=== PATIENT | female | born 1940 | race Caucasian/White ===

== ENCOUNTER 2016-07-30 09:33 | Emergency (ER) | payer MEDICARE, OTHER ==
[~2016-07-30 09:33] MED LIST: ASAB PO; CALTRAT600; CIP5 PO; COZ25 PO; CRESTOR20 MG PO; FISH OIL PO; FLAG500TAB PO; GLUCOTROL5 PO; HALF81 PO; HYZAAR 100/25 T1 TAB PO; K500 PO; KLOR-CON M2020 MEQ PO; L40 PO; LEVOTHYROXIN75 MCG PO; LEVOTHYROXIN88 MCG PO; LIPITOR10 PO; LIPITOR40 PO; LOFIB160 PO; LOP25 PO; NEUR300 PO; P1 PO; P10 PO; PROAIR HFA INH; PROTONIX PO; PROVHFA INH; SYN112 PO; T PO; TOPXL25 PO; ULTRAM50 PO; VICODINTAB PO; VITAMIN B-122500 MCG SL
[2016-07-30 10:52] LABS: BASOPHILS 0.2 %; BASOPHILS ABSOLUTE 0.03 10/3/uL (0.0-0.16); EOSINOPHILS 0.3 %; EOSINOPHILS ABSOLUTE 0.05 10/3/uL (0.0-0.53); IMMATURE GRANULOCYTES 0.8 %; IMMATURE GRANULOCYTES ABSOLUTE 0.11 10/3/uL (0.0-0.11); LYMPHOCYTES 16.8 %; LYMPHOCYTES ABSOLUTE 2.44 10/3/uL (0.67-4.30); MEAN CORPUS HGB CONC 32.2 g/dL (32.0-36.0); MEAN CORPUSCULAR HEMOGLOB 29.6 pg (26.0-34.0); MEAN PLATELET VOLUME 8.8 fL (9.2-13.0); MONOCYTES 7.3 %; MONOCYTES ABSOLUTE 1.06 10/3/uL (0.21-1.20); NEUTROPHILS 74.6 %; RBC DISTRIBUTION WIDTH 15.2 % (12.0-16.0)
[2016-07-30 10:57] LABS: ER CBC TAT 0 Hrs 08 Mins; RED CELL COUNT 3.58 10/6/uL (4.0-5.6); WHITE BLOOD CELLS 14.5 10/3/uL (4.5-10.5)
[2016-07-30 10:58] LABS: HEMATOCRIT 32.9 % (36.0-48.0); HEMOGLOBIN 10.6 g/dL (12.0-16.0); MANUAL DIFF NO %; MEAN CORPUSCULAR VOLUME 91.9 fL (80-100); PLATELET COUNT 481 10/3/uL (150-400)
[2016-07-30 11:04] LABS: ALBUMIN 2.2 G/DL (3.5-5.0); BUN (BLOOD UREA NITROGEN) 8 MG/DL (6-23); CHLORIDE, SERUM 101 MMOL/L (96-112); CO2 (CARBON DIOXIDE) 28 MMOL/L (24-34); CREATININE 0.56 MG/DL (0.55-1.02); GFR AFRICAN AMERICAN 106 ML/MIN (>=60); GFR NON AFRICAN AMERICAN 91 ML/MIN (>=60); POTASSIUM, SERUM 3.9 MMOL/L (3.5-5.3); SGOT(AST) 20 U/L (5-40); SGPT(ALT) 18 U/L (5-65); SODIUM, SERUM 139 MMOL/L (135-148); TOTAL BILIRUBIN 0.3 MG/DL (0-1.2)
[2016-07-30 11:08] LABS: A/G RATIO 0.6 (0.7-1.9); ALKALINE PHOSPHATASE 261 U/L (45-117); GLOBULIN 3.8 G/DL (2.5-4.1); GLUCOSE, SERUM 107 MG/DL (60-99)
[2016-08-06] MEDS ORDERED: ATROVENTUD INH (14:48)
[2016-08-06] MEDS ORDERED: KDUR20 PO (15:19)
[2016-08-06] MEDS ORDERED: NEUR100 PO (15:20)
[2016-08-06] MEDS ORDERED: LIPITOR40 PO (15:21)
[2016-08-06] MEDS ORDERED: P1 PO (15:22)
[2016-08-06] MEDS ORDERED: LEVOTHYROXIN125 MCG PO (15:23)
[2016-08-06] MEDS ORDERED: DOK100 MG PO (15:24)
[2016-08-06] MEDS ORDERED: HUMALOG SC (15:24)
[2016-08-06] MEDS ORDERED: CYANO1000T PO (15:26)
[2016-08-06] MEDS ORDERED: BISR PR (15:27)
[2016-08-06] MEDS ORDERED: MIRALAX POWDER1 PKT PO (15:28)
[2016-08-06] MEDS ORDERED: ZOFRAN4 PO (15:28)
[2016-08-06] MEDS ORDERED: ENDOCET1 TA1 PO (15:29)
[2016-08-06] MEDS ORDERED: MULTIPLE VIT PO (15:29)
[2016-08-06] MEDS ORDERED: MAGOX4 PO (15:30)
[2016-08-06] MEDS ORDERED: L20 PO (15:30)
[2016-08-06] MEDS ORDERED: SEPTRA DS1 TAB PO (15:31)
[2016-09-30] MEDS ORDERED: BAC PO (15:44)
[2016-10-14] MEDS ORDERED: ASAB PO (10:39)
[2016-10-14] MEDS ORDERED: LEVOTHYROXIN125 MCG PO (10:39)
[2016-10-14] MEDS ORDERED: CRESTOR20 MG PO (10:39)
[2016-10-14] MEDS ORDERED: COREG12 PO (10:39)
[2016-10-14] MEDS ORDERED: L20 PO (10:39)
[2016-10-14] MEDS ORDERED: MEG40 PO (10:40)
[2016-10-14] MEDS ORDERED: KLOR-CON M2020 MEQ PO (10:40)
[2016-10-14] MEDS ORDERED: P1 PO (10:40)
[2016-10-14] MEDS ORDERED: PROVHFA INH (10:41)
[2016-10-14] MEDS ORDERED: ALIGN4 MG PO (10:41)
== END 2016-07-30 12:19 | disposition home or self-care (01) ==
LOC: ER 09:33
PROVIDERS: Emergency Medicine
DX: T81.4XXA Infection following a procedure, initial encounter (principal); L02.211 Cutaneous abscess of abdominal wall; Z79.899 Other long term (current) drug therapy; Z79.82 Long term (current) use of aspirin; Z79.84 Long term (current) use of oral hypoglycemic drugs
CPT/HCPCS: 80053; 83690; 85025; 87070; 87077; 87186; 87205; 99284; A9270-GY

== ENCOUNTER 2016-08-25 19:22 | Inpatient (IN) | payer MEDICARE, OTHER ==
--- NOTE | ~2016-08-25 | EGD ---
EGD REPORT [facility] [address] [place] [address] NAME: KRIS PETTY : [birth year] STATUS : ADM IN PAT#: [id number] AGE: 76 ADM/REG DATE : 08/25/16 MR#: [id number] REPORT SERV DATE: 09/08/16 DICTATED BY: BRYCE LOPEZ DATE: 09/08/16 REPORT STATUS : Draft TRANSCRIBED BY: [facility] DATE: 09/08/16 Endoscopy Center Patient Name: Kris Petty Date of : 1940 Attending MD: BRYCE LOPEZ MD Procedure Date No Time: 09/08/2016 Procedure: ERCP Indications: Suspected leak of the biliary or pancreatic ducts Referring MD: ELENA CORNEJO MD Medicines: General Anesthesia, Indomethacin 100 mg rectal Complications: No immediate complications. Estimated blood loss: None Procedure: Pre-Anesthesia Assessment: - ASA Grade Assessment: III - A patient with severe systemic disease. After obtaining informed consent, the scope was passed under direct vision. Throughout the procedure, the patient's blood pressure, pulse, and oxygen saturations were monitored continuously. The Duodenoscope was introduced through the mouth, and advanced to the duodenum and used to inject contrast into the bile duct and ventral pancreatic duct. The ERCP was accomplished without difficulty. The patient tolerated the procedure well. Findings: The sheep herder film was normal. The esophagus was successfully intubated under direct vision without detailed examination of the pharynx, larynx, and associated structures, and upper GI tract. The major papilla was congested and angled in a way that made engaging the catheter difficult, but the scope was manipulated to allow eventual cannulation. After engaging the papilla, a 0.035 inch x 260 cm straight Dreamwire was passed into the biliary tree. The short-nosed traction sphincterotome was passed over the guidewire and the bile duct was then deeply cannulated. Contrast was injected. I personally interpreted the bile duct images. Image quality was adequate. Opacification of the entire biliary tree was successful. There was no extravasation of contrast. Neither stones nor ductal dilatation were present in the main bile duct. Next, the papilla was engaged a second time with the first wire still in place and a second 0.035 inch x 260 cm straight Dreamwire was passed into the ventral pancreatic duct. The ventral pancreatic duct was deeply cannulated with the short-nosed traction sphincterotome. Contrast was injected. The entire pancreatic duct was not dilated. The entire pancreatic duct exam showed no extravasation of contrast, no irregularity and no stenosis. The ventral pancreatic duct was aspirated to lower the pressure in the duct and remove all of the contrast. Clear EGD REPORT [address] [address] NAME: KRIS PETTY : [birth year] STATUS : ADM IN [facility]#: [id number] AGE: 76 ADM/REG DATE : 08/25/16 MR#: [id number] REPORT SERV DATE: 09/08/16 DICTATED BY: BRYCE LOPEZ DATE: 09/08/16 REPORT STATUS : Draft TRANSCRIBED BY: [employer] DATE: 09/08/16 fluid was obtained and no contrast remained in the PD. The endoscope was then withdrawn from the patient to conclude the case. Impression: - Normal endoscopic retrograde cholangiopancreatography with no biliary leaks, biliary duct extravasation, pancreatic duct leaks or pancreatic duct extravasation seen. Recommendation: - [facility] to [facility] for [facility] care. Procedure Code(s): --- Professional --- 29803, Endoscopic retrograde cholangiopancreatography (ERCP); diagnostic, including collection of specimen(s) by brushing or washing, when performed (separate procedure) Diagnosis Code(s): --- Professional --- K83.9, Disease of biliary tract, unspecified CPT copyright 2013 [employer] [place] [employer]. All rights reserved. The codes documented in this report are preliminary and upon multi purpose machine operator review may be revised to meet current compliance requirements. Bryce Lopez MD BRYCE LOPEZ MD 09/08/2016 8:55 AM This report has been signed electronically. Number of Addenda: 0 Note Initiated On: 09/08/2016 7:37 AM Scope Withdrawal Time 0 hours 0 minutes 0 seconds [id number] [id number]
--- NOTE | ~2016-08-25 | EGD ---
EGD REPORT [place] [address] [place]. [address] NAME: KRIS PETTY : [birth year] STATUS : ADM IN PAT#: [id number] AGE: 76 ADM/REG DATE : 08/25/16 MR#: [id number] REPORT SERV DATE: 08/31/16 DICTATED BY: BRYCE LOPEZ DATE: 08/31/16 REPORT STATUS : Draft [facility]IBED BY: [facility] DATE: 08/31/16 Endoscopy Center Patient Name: Kris Petty Date of : 1940 Attending MD: BRYCE LOPEZ MD Procedure Date No Time: 08/31/2016 Procedure: Upper GI endoscopy Indications: Abnormal CT of the GI tract Referring MD: DENIA KEEN MD Medicines: Monitored Anesthesia Care Complications: No immediate complications. Estimated blood loss: Minimal. Procedure: After obtaining informed consent, the endoscope was passed under direct vision. Throughout the procedure, the patient's blood pressure, pulse, and oxygen saturations were monitored continuously. The GIF [id number] was introduced through the mouth, and advanced to the proximal jejunum. The upper GI endoscopy was accomplished without difficulty. The patient tolerated the procedure well. Findings: The examined esophagus was normal. The entire examined stomach was normal. Patchy mild inflammation characterized by erosions and erythema was found in the duodenal bulb, in the first part of the duodenum and in the second part of the duodenum. The examined jejunum was normal. The cardia and gastric fundus were normal on retroflexion. Impression: - Mild duodenitis without any suggestion of a fistula. - Examination otherwsie normal Recommendation: - Return patient to [facility] for [facility] care. - Clear liquid diet. Procedure Code(s): --- Professional --- 36073, Esophagogastroduodenoscopy, flexible, transoral; diagnostic, including collection of specimen(s) by brushing or washing, when performed (separate procedure) Diagnosis Code(s): --- Professional --- K29.80, Duodenitis without bleeding R93.3, Abnormal findings on diagnostic imaging of other parts of digestive tract EGD REPORT [place] [address] [place]. [address] NAME: KRIS PETTY : [birth year] STATUS : ADM IN [facility]#: [id number] AGE: 76 ADM/REG DATE : 08/25/16 MR#: [id number] REPORT SERV DATE: 08/31/16 DICTATED BY: BRYCE LOPEZ DATE: 08/31/16 REPORT STATUS : Draft TRANSCRIBED BY: [email or web address] DATE: 08/31/16 CPT copyright 2013 [employer]. All rights reserved. The codes documented in this report are preliminary and upon mononitrotoluene operator review may be revised to meet current compliance requirements. Bryce Lopez MD BRYCE LOPEZ MD 08/31/2016 8:53 AM This report has been signed electronically. Number of Addenda: 0 Note Initiated On: 08/31/2016 8:15 AM Scope Withdrawal Time 0 hours 0 minutes [address] [place], [place] [address] [address]
--- NOTE | ~2016-08-25 | CN ---
Consultation Report [facility] [address] [place]. [address] NAME: KRIS PETTY : [birth year] STATUS : ADM IN PAT#: [id number] AGE: 76 ADM/REG DATE : 08/25/16 MR#: [id number] REPORT SERV DATE: 08/30/16 DICTATED BY: CORINA NAIDU DATE: 08/30/16 REPORT STATUS : Draft TRANSCRIBED BY: MODL DATE: 08/30/16 GI CONSULTATION DATE OF CONSULTATION: 08/30/2016 REASON FOR CONSULTATION: Evaluation and management of the patient for EGD to rule out duodenal fistula. HISTORY OF PRESENT ILLNESS: Ms Kris Petty is a very pleasant 76-year-old female patient, who is known to Dr. Ben Banegas in the outpatient setting ,who presented to [facility] on 08/25/2016, with a chief complaint of right upper quadrant retroperitoneal abscess. We saw Ms. Petty in June of 2016, while she was in the ICU. She had been admitted at that time for mid epigastric abdominal pain, progressed to septic shock, and felt possibly she has had rupture of her gallbladder, she underwent emergent surgery with Dr. Sifuentes on 06/09/2016, with postoperative diagnosis of severe acute pancreatitis, cholecystitis, bile peritonitis, sepsis, with multi-system organ failure. We had seen her at that time, for evaluation of bile leak which HIDA scan did not reveal and subsequently, we signed off her case. She was ultimately discharged from the hospital on 07/13/2016, she went to rehab, states that she was at rehab, and was doing well up until several weeks ago when she had drainage from her midline incision. She was seen by Dr. Sifuentes, who sent her for imaging on 08/06/2016. She had findings of a large 11 x 12 x 17 cm right flank retroperitoneal posterior perirenal fluid collection, potentially a biloma versus abscess with no extravasation of the GI tract contrast into the collection. She on that same day, had a drain placed to that site. She states that she went back to rehab, did well for two days, then had recurrence of drainage. She has had a HIDA scan on 08/23/2016, which showed no evidence of the bile leak. She had an abscessogram done on 08/23/2016, which demonstrated persistent large retroperitoneal collection, with a component tracking into intrahepatic region. Injection of contrast through the existing drain did demonstrate the collection to be loculated, and the drain was partially clogged with poor output from the drain. She has since that time been readmitted, she has had multiple other drains placed, she has had an upper GI with Gastrografin that did not reveal any extravasation of contrast. She is going for a repeat abscessogram today. Dr. Sifuentes has requested GI evaluation to rule out possible duodenal fistula. I have discussed with the patient, EGD, risks, benefits, alternatives, and complications were detailed for her to include, but not limited to risk of bleeding, perforation, infection, reaction to medication, as well as cardiac and pulmonary side effects. She gives permission to proceed. PAST MEDICAL HISTORY: Positive for right upper quadrant abscess associated with septic shock that required emergent surgery in June of this year. Pancreatitis, steroid dependent temporal arteritis, type 2 diabetes, coronary artery disease, history of [place], diverticulitis, as well as diverticulosis, and GERD. PAST SURGICAL HISTORY: Thyroidectomy with postoperative hypothyroidism, pacemaker placement, lip cyst excision, laparoscopic cholecystectomy, laparotomy with lavage of abdominal cavity, Consultation Report [place] [id number] [facility] [place]. [address] NAME: KRIS PETTY : [birth year] STATUS : ADM IN [facility]#: [id number] AGE: 76 ADM/REG DATE : 08/25/16 MR#: [id number] REPORT SERV DATE: 08/30/16 DICTATED BY: CORINA NAIDU DATE: 08/30/16 REPORT STATUS : Draft TRANSCRIBED BY: [employer] DATE: 08/30/16 and mobilization of duodenum. SOCIAL HISTORY: She lives independently. Just finished rehabilitation from her June hospitalization. Past tobacco cessation in 2006. No alcohol or illicits. FAMILY HISTORY: Noncontributory from a GI standpoint. ALLERGIES: NO KNOWN DRUG ALLERGIES. HOME MEDICATIONS: Tylenol, aspirin, Lipitor, vitamin B12, Lasix, levothyroxine, potassium, and prednisone. REVIEW OF SYSTEMS: A 10-point review of systems has been obtained with pertinent positives being addressed in the history of present illness. PERTINENT LABORATORY DATA: Sodium 139, potassium 4, BUN of 2, creatinine 0.42, white count 10.4, hemoglobin 9.5, hematocrit 29. On 08/23/2016, wound cultures revealed Klebsiella pneumoniae. She had elevated CA 19-9 at 39.4, total bilirubin 0.2, alkaline phosphatase 104, ALT 11, and AST 10. PHYSICAL EXAMINATION: VITAL SIGNS: Temperature is 97.8, pulse 97, respirations 14, and blood pressure of 123/63. NEURO: Reveals an alert, female, resting in bed with no focal deficits. GENERAL: Cooperative, in no apparent distress. She is awake, she is alert, and she is oriented x3. HEAD, EARS, EYES, NOSE, AND THROAT: Anicteric. Pupils equal, round, and reactive to light and accommodation. Normocephalic and atraumatic. NECK: Supple. No JVD. No palpable nodes. LUNGS: Coarse with positive cough. Normal respiratory effort exhibited. CARDIOVASCULAR: Regular rate and rhythm. ABDOMEN: Soft, nondistended, obese. Midline dressing clean, dry, and intact. She has right-sided JOSEPHINE drains with light yellow drainage. EXTREMITIES: No edema. Normal distal pulses. SKIN: Warm, dry, and intact with multiple areas of ecchymosis. ASSESSMENT/PLAN: 1. Right upper quadrant retroperitoneal abscess, questionable etiology. 2. Questionable duodenal fistula, EGD to rule out. 3. Status post hospitalization in June 2016, septic shock, right upper quadrant bile collection, pancreatitis. 4. Temporal arteritis, on chronic steroids. 5. Type 2 diabetes. PLAN: Consultation Report [address] [place]. [address] NAME: KRIS PETTY : [birth year] STATUS : ADM IN [facility]#: [id number] AGE: 76 ADM/REG DATE : 08/25/16 MR#: [id number] REPORT SERV DATE: 08/30/16 DICTATED BY: CORINA NAIDU DATE: 08/30/16 REPORT STATUS : Draft TRANSCRIBED BY: MODL DATE: 08/30/[address] abscessogram today. 2. We will plan for EGD on 08/31/[address] Aguillon. Other recommendations to follow. ELY/RICH FLAQUITA Amador / [id number] CC: Collins Curtis III, M.D.
--- NOTE | ~2016-08-25 | HP ---
History And Physical [place] [id number] [facility] [place]. [address] NAME: KRIS PETTY : [birth year] STATUS : ADM IN [facility]#: [id number] AGE: 76 ADM/REG DATE : 08/25/16 MR#: [id number] REPORT SERV DATE: 08/26/16 DICTATED BY: ARIELLA BAKER III DATE: 08/25/16 REPORT STATUS : Draft TRANSCRIBED BY: MODL DATE: 08/25/16 DATE OF ADMISSION: 08/25/2016 HISTORY OF PRESENT ILLNESS: This 76-year-old female was admitted hospital emergently with evidence for a right upper quadrant retroperitoneal abscess. Ms Petty was hospitalized emergently on 06/07/2016. She presented to the emergency room with evidence for severe pancreatitis and sepsis and septic shock. The etiology for this was unclear. The patient underwent emergent laparotomy on 06/09/2016. She was found to have evidence for severe acute pancreatitis and cholecystitis and bile peritonitis. She had a large collection of bile in the right upper quadrant. The exact source of this could not be identified. Although the patient had evidence for cholecystitis, there was no evidence for gallbladder rupture. The patient was septic at that time with multisystem organ failure. She was treated with surgical drainage of her fluid collection and cholecystectomy. She required prolonged intensive care unit stay and prolonged ventilation. The patient recovered from this and was discharged to an assisted living facility in stable condition. Since that time, the patient has had a poor appetite and some nausea. She recently presented to our office with drainage from her midline incision. CT scan of the abdomen and pelvis was obtained at that time, which showed a large retroperitoneal fluid collection consistent with an abscess or biloma. CT directed drainage was performed. The patient has improved somewhat, but remains ill. She has been seen in my office on several occasions and admission hospital to the hospital was indicated because of this complex complicated problem associated with previous sepsis and because of her frail condition. We discussed this with the patient and her daughter on several times and occasions. The patient was recovering and declined initially to be admitted to the hospital. Today, she agreed to be admitted and is admitted for further care including parental antibiotics and a repeat CT scan. Her last CT scan showed a large collection again in the retroperitoneum in the right upper quadrant. Cultures of this were obtained and were found to be positive for Klebsiella. The contrast was administered through the drain and no connection of GI tract was identified. PAST MEDICAL HISTORY: 1. History of a large right upper quadrant abscess associated with septic shock requiring emergent surgery on 06/09/2016 as above, associated pancreatitis, with the etiology for this being undetermined. 2. History of steroid dependent temporal arteritis. 3. History of diabetes mellitus. 4. History of coronary artery disease. 5. Myocardial infarction in the past. ALLERGIES: NONE. REVIEW OF SYSTEMS: The patient complains of some drainage from her incision. She complains of some nausea. She has had no fever or chills or any systemic complaint. History And Physical [address] [place]. [address] NAME: KRIS PETTY : 42 STATUS : ADM IN [facility]#: [id number] AGE: 76 ADM/REG DATE : 08/25/16 MR#: [id number] REPORT SERV DATE: 08/26/16 DICTATED BY: ARIELLA BAKER III DATE: 08/25/16 REPORT STATUS : Draft TRANSCRIBED BY: RICH DATE: 08/25/16 MEDICATIONS AT HOME: Include Tylenol, Halfprin, vitamin D, Neurontin, Glucotrol, Synthroid, Hyzaar, Protonix, potassium, Deltasone, Crestor, and Ultram. SOCIAL HISTORY: The patient is retired. She lives locally. She is recently discharged from assisted living facility. No history of tobacco or alcohol use. FAMILY HISTORY: Positive for COPD. OBJECTIVE PHYSICAL EXAM: GENERAL: This is a frail female who is in no acute distress. She is alert and oriented x3. HEENT: Unremarkable. Cranial nerves II through XII are normal. LUNGS: Clear. CARDIAC: Normal. ABDOMEN: Soft and nontender. She has some serosanguineous to cloudy drainage from the inferior aspect of her previous midline incision. The incision itself is well healed. She has some drainage from superior aspect of the incision as well. EXTREMITIES: Normal. LABORATORY DATA: CT scan of the abdomen and pelvis is as above. ASSESSMENT: A 76-year-old female with: 1. Right upper quadrant right retroperitoneal abscess, unclear etiology. 2. Status post hospitalization emergently for septic shock associated with right upper quadrant bile collection of undetermined etiology, requiring emergent laparotomy with drainage of the abscess on 06/09/2016. The patient is felt to have radiographic evidence for pancreatitis at that time. 3. Steroid dependent temporal arteritis. 4. Diabetes mellitus. 5. Coronary artery disease. 6. History of myocardial infarction in the past. PLAN: The patient will be admitted and started on parenteral fluids and antibiotics. I have requested a repeat CT scan of the abdomen and pelvis to follow up on the right upper quadrant fluid collection. I have also requested an ID consult. Further intervention and treatment will depend on her clinical course and results of these studies. This plan has been explained the patient and family. There questions have been answered. They understand and agree to this as planned. MARLENE/RICH Ariella Baker III, M.D. / [phone] History And Physical [address] [address] NAME: KRIS PETTY : 42 STATUS : ADM IN PAT#: [id number] AGE: 76 ADM/REG DATE : 08/25/16 MR#: [id number] REPORT SERV DATE: 08/26/16 DICTATED BY: ARIELLA BAKER III DATE: 08/25/16 REPORT STATUS : Draft TRANSCRIBED BY: RICH DATE: 08/25/16 CC: Collins Curtis III, M.D.
--- NOTE | ~2016-08-25 | DS ---
Discharge Summary [facility] [address] [place]. [address] NAME: KRIS MORROW : 42 STATUS : DIS IN PAT#: [id number] AGE: 76 ADM/REG DATE : 08/25/16 MR#: [id number] REPORT SERV DATE: 09/26/16 DICTATED BY: ARIELLA BAKER III DATE: 09/26/16 REPORT STATUS : Draft TRANSCRIBED BY: MODMonica DATE: 09/26/16 Data Collection from hospitalization DISCHARGE DIAGNOSES: 1. Right upper quadrant abscess. 2. Questionable fistula. 3. Diabetes mellitus. 4. History of coronary artery disease. 5. History of myocardial infarction. 6. History of steroid dependent temporal arteritis. 7. Former tobacco use. 8. Anemia. 9. Mild chronic obstructive pulmonary disease. 10.Gastroesophageal reflux disease. 11.History of septic shock. CONSULTATIONS: FLAQUITA Amador. Carlos Santiago M.D. PROCEDURES PERFORMED: 1. Upper GI endoscopy on 08/31/2016. 2. ERCP 09/08/2016. 3. CT scan of the abdomen and pelvis without contrast, 08/26/2016. 4. CT-guided percutaneous placement of two right-sided abdominal abscess drain 08/27/2016. 5. Abscessogram 08/30/2016. 6. Abscessogram 09/03/2016. 7. CT scan of the abdomen and pelvis without contrast, 09/06/2016. 8. Abscessogram 09/09/2016. MEDICATIONS: Tylenol 650 mg at bedtime as needed, Halfprin 81 mg daily, vitamin B12 5000 mcg daily, Lasix 20 to 40 mg daily as needed, levothyroxine 125 mcg daily, K-Dur 20 mEq daily, Deltasone 2 mg daily, Crestor 20 mg at bedtime. CONDITION AT DISCHARGE: Stable. DISPOSITION: The patient was discharged home to be followed by home health care on an 1800- calorie diabetic diet with activities as instructed. She will follow up with me the week following discharge. HOSPITAL COURSE: This is a 76-year-old female who presented with evidence for a right upper quadrant retroperitoneal abscess. The patient had been hospitalized emergently on 06/07/2016. She presented to the emergency room with evidence for severe pancreatitis, sepsis, and septic shock. The etiology for this was unclear. The patient underwent emergent laparotomy on 06/09/2016. She was found to have evidence for severe acute pancreatitis and cholecystitis and bile peritonitis. She had a large collection of bile on the right upper quadrant pain. The exact source of this could not be identified. Although, the patient had evidence for cholecystitis, there was no evidence for gallbladder rupture. The patient was septic at that time with multi-system organ failure. She was treated with surgical drainage of her fluid collection and cholecystectomy. She required prolonged Discharge [address] [place]. [address] NAME: KRIS MORROW : 42 STATUS : DIS IN PAT#: [id number] AGE: 76 ADM/REG DATE : 08/25/16 MR#: [id number] REPORT SERV DATE: 09/26/16 DICTATED BY: ARIELLA BAKER III DATE: 09/26/16 REPORT STATUS : Draft TRANSCRIBED BY: RICH DATE: 09/26/16 intensive care unit stay and prolonged ventilation. The patient recovered from this and was discharged to an assisted living facility in stable condition. Since that time, she had a poor appetite and had some nausea. She recently presented to our office with drainage from her midline incision. A CT scan of the abdomen and pelvis at that time showed large retroperitoneal fluid collection consistent with an abscess or biloma. CT-directed drainage was performed. The patient had improved somewhat but remained ill. She was seen in my office on several occasions, and admission to the hospital was indicated because of this complex complicated problem associated with previous sepsis and because of her frail condition. We discussed this with the patient and her daughter on several occasions, and the patient was recovering and declined initially to be admitted to the hospital. On the day of this admission, she agreed to be admitted for parental antibiotics and repeat CT scan. Her last CT scan showed a large collection again in the retroperitoneum in the right upper quadrant. Cultures were obtained and were found to be positive for Klebsiella. The contrast was administered through the drain and no connection of GI tract was identified. She was admitted at this time for further evaluation and treatment. Upon admission, a CT scan of the abdomen and pelvis without contrast was performed. The patient was seen by Dr. Carlos Santiago who had seen the patient in May for severe sepsis. The patient has had pancreatitis, cholecystitis, right upper quadrant inflammation, and bilious fluid but no evidence of GI perforation. She had undergone laparotomy and cholecystectomy. She had recently developed drainage from the midline abdominal incision. Her CT scan showed a large right retroperitoneal fluid collection. This was decreased percutaneously on 08/06/2016, 750 mL of white fluids had been removed and cultures had revealed Klebsiella. On 08/23/2016, a HIDA scan showed no biliary leak. Zosyn had been started. She was evaluated by Physical Therapy. He was not fully convinced the patient would need antibiotics at this time. On , the patient underwent CT-guided percutaneous placement of two right-sided abdominal abscess drains. On , she said she was feeling much better after the drainage procedure. Her appetite had improved. She had no nausea, vomiting, or abdominal pain at this time. She had been found to have a large right upper quadrant/retroperitoneal abscess, the etiology was unclear. On 08/29/2016, she was alert and comfortable. She had no complaints. She continued to have intermittent ileus drainage. Zosyn was continued. On 08/30/2016, she had no new complaints. An abscessogram was performed. She had no abdominal pain, nausea, or vomiting. Repeat CT scan was requested. She was seen by Yakov De Jesus for evaluation and management of the patient for EGD to rule out duodenal fistula. The risks and benefits of EGD were discussed with the patient. She gave permission to proceed. On , she underwent an upper GI endoscopy by Dr. Bryce Aguillon. She tolerated this well. There were no complications. There was mild duodenitis without any suggestion of a fistula. The exam was otherwise normal. She was placed on a clear liquid diet. Small bowel follow-through had been performed, this showed no leak. The patient had no abdominal pain. On 09/01/2016, she had no new complaints. Antibiotics were continued. She was afebrile. Drainage cultures were negative. The next day, she had no complaints except for being hungry. Her diet was advanced. The JOSEPHINE drain site was sore. The patient underwent an abscessogram. On 09/04/2016, current care was continued. She remained afebrile. On the , she was feeling better and wanted to go home. She was eating well. She had no abdominal pain. Zosyn was discontinued. On 09/06/2016, she had no new complaints. CT scan Discharge [place] [id number] [address] [place]. [id number] NAME: KRIS MORROW : 42 STATUS : DIS IN PAT#: [id number] AGE: 76 ADM/REG DATE : 08/25/16 MR#: [id number] REPORT SERV DATE: 09/26/16 DICTATED BY: ARIELLA BAEKR III DATE: 09/26/16 REPORT STATUS : Draft TRANSCRIBED BY: MODL DATE: 09/26/16 of the abdomen and pelvis without contrast was performed. She was felt to have a bilious leak the next day. The patient denied abdominal pain. Heparin was held. There was air in the biliary tree. JOSEPHINE drain #1 was going to be removed. On 09/08/2016, ERCP was performed. She had a normal common bile duct. No evidence of bile or pancreatic leak. Next day, discharge planning was performed. Abscessogram was obtained. She remained afebrile. Abscessogram showed no biliary fistula. She was stable off antibiotics. On 09/10/2016, she felt well and wanted to go home. Discharge instructions were given. Due to her improved and stable condition, she was discharged home to be followed by home health care with the above-stated instructions. Information collected by: Giselle Valentino I submit the above information as my discharge summary. TG/RICH Ariella Baker III, M.D. / [id number] CC: Collins Curtis III, M.D. Paul Cornea, M.D. Destin Griffin-Trussell, FNP
[~2016-08-25 19:22] MED LIST changes: +ATROVENTUD INH; +BISR PR; +CYANO1000T PO; +DOK100 MG PO; +ENDOCET1 TA1 PO; +HUMALOG SC; +KDUR20 PO; +L20 PO; +LEVOTHYROXIN125 MCG PO; +MAGOX4 PO; +MIRALAX POWDER1 PKT PO; +MULTIPLE VIT PO; +NEUR100 PO; +SEPTRA DS1 TAB PO; +ZOFRAN4 PO
[2016-08-25 20:56] LABS: BASOPHILS 0.2 %; BASOPHILS ABSOLUTE 0.02 10/3/uL (0.0-0.16); EOSINOPHILS 0.4 %; EOSINOPHILS ABSOLUTE 0.05 10/3/uL (0.0-0.53); HEMATOCRIT 32.4 % (36.0-48.0); HEMOGLOBIN 10.6 g/dL (12.0-16.0); IMMATURE GRANULOCYTES 0.4 %; IMMATURE GRANULOCYTES ABSOLUTE 0.04 10/3/uL (0.0-0.11); LYMPHOCYTES 13.2 %; LYMPHOCYTES ABSOLUTE 1.49 10/3/uL (0.67-4.30); MANUAL DIFF NO %; MEAN CORPUS HGB CONC 32.7 g/dL (32.0-36.0); MEAN CORPUSCULAR HEMOGLOB 28.2 pg (26.0-34.0); MEAN CORPUSCULAR VOLUME 86.2 fL (80-100); MEAN PLATELET VOLUME 8.7 fL (9.2-13.0); MONOCYTES 8.6 %; MONOCYTES ABSOLUTE 0.98 10/3/uL (0.21-1.20); NEUTROPHILS 77.2 %; NEUTROPHILS ABSOLUTE 8.75 10/3/uL (2.02-8.40); PLATELET COUNT 457 10/3/uL (150-400); RBC DISTRIBUTION WIDTH 15.9 % (12.0-16.0); RED CELL COUNT 3.76 10/6/uL (4.0-5.6); WHITE BLOOD CELLS 11.3 10/3/uL (4.5-10.5)
[2016-08-25 21:11] LABS: A/G RATIO 0.6 (0.7-1.9); ALBUMIN 2.2 G/DL (3.5-5.0); ALKALINE PHOSPHATASE 121 U/L (45-117); BUN (BLOOD UREA NITROGEN) 5 MG/DL (6-23); CALCIUM, SERUM 9.8 MG/DL (8.5-10.4); CHLORIDE, SERUM 104 MMOL/L (96-112); CO2 (CARBON DIOXIDE) 21 MMOL/L (24-34); CREATININE 0.47 MG/DL (0.55-1.02); GFR AFRICAN AMERICAN 112 ML/MIN (>=60); GFR NON AFRICAN AMERICAN 97 ML/MIN (>=60); GLOBULIN 3.4 G/DL (2.5-4.1); GLUCOSE, SERUM 73 MG/DL (60-99); POTASSIUM, SERUM 3.7 MMOL/L (3.5-5.3); SGOT(AST) 11 U/L (5-40); SGPT(ALT) 12 U/L (5-65); SODIUM, SERUM 139 MMOL/L (135-148); TOTAL BILIRUBIN 0.3 MG/DL (0-1.2); TOTAL PROTEIN 5.6 G/DL (6.0-8.5)
[2016-08-26 07:08] LABS: BASOPHILS 0.2 %; BASOPHILS ABSOLUTE 0.02 10/3/uL (0.0-0.16); EOSINOPHILS 1.7 %; EOSINOPHILS ABSOLUTE 0.16 10/3/uL (0.0-0.53); HEMATOCRIT 30.9 % (36.0-48.0); IMMATURE GRANULOCYTES 0.9 %; IMMATURE GRANULOCYTES ABSOLUTE 0.09 10/3/uL (0.0-0.11); MEAN CORPUS HGB CONC 32.4 g/dL (32.0-36.0); MEAN CORPUSCULAR HEMOGLOB 28.6 pg (26.0-34.0); MEAN CORPUSCULAR VOLUME 88.3 fL (80-100); MEAN PLATELET VOLUME 9.8 fL (9.2-13.0); MONOCYTES 12.1 %; MONOCYTES ABSOLUTE 1.16 10/3/uL (0.21-1.20); NEUTROPHILS 61.1 %; NEUTROPHILS ABSOLUTE 5.85 10/3/uL (2.02-8.40); PLATELET COUNT 389 10/3/uL (150-400); RBC DISTRIBUTION WIDTH 16.2 % (12.0-16.0); WHITE BLOOD CELLS 9.6 10/3/uL (4.5-10.5)
[2016-08-26 07:10] LABS: MANUAL DIFF NO %
[2016-08-26 07:26] LABS: A/G RATIO 0.6 (0.7-1.9); ALBUMIN 1.9 G/DL (3.5-5.0); ALKALINE PHOSPHATASE 104 U/L (45-117); BUN (BLOOD UREA NITROGEN) 5 MG/DL (6-23); CALCIUM, SERUM 9.1 MG/DL (8.5-10.4); CHLORIDE, SERUM 109 MMOL/L (96-112); CO2 (CARBON DIOXIDE) 23 MMOL/L (24-34); GFR AFRICAN AMERICAN 110 ML/MIN (>=60); GFR NON AFRICAN AMERICAN 95 ML/MIN (>=60); GLOBULIN 3.1 G/DL (2.5-4.1); GLUCOSE, SERUM 80 MG/DL (60-99); POTASSIUM, SERUM 3.8 MMOL/L (3.5-5.3); SGOT(AST) 10 U/L (5-40); SGPT(ALT) 11 U/L (5-65); SODIUM, SERUM 141 MMOL/L (135-148); TOTAL BILIRUBIN 0.2 MG/DL (0-1.2)
[2016-08-26] MEDS ORDERED: CRESTOR20 MG PO (12:25)
[2016-08-27 05:45] LABS: BASOPHILS 0.2 %; BASOPHILS ABSOLUTE 0.02 10/3/uL (0.0-0.16); EOSINOPHILS 2.3 %; EOSINOPHILS ABSOLUTE 0.21 10/3/uL (0.0-0.53); HEMATOCRIT 30.1 % (36.0-48.0); HEMOGLOBIN 9.5 g/dL (12.0-16.0); IMMATURE GRANULOCYTES 0.4 %; IMMATURE GRANULOCYTES ABSOLUTE 0.04 10/3/uL (0.0-0.11); LYMPHOCYTES 23.3 %; LYMPHOCYTES ABSOLUTE 2.12 10/3/uL (0.67-4.30); MEAN CORPUS HGB CONC 31.6 g/dL (32.0-36.0); MEAN CORPUSCULAR HEMOGLOB 28.2 pg (26.0-34.0); MEAN CORPUSCULAR VOLUME 89.3 fL (80-100); MEAN PLATELET VOLUME 8.7 fL (9.2-13.0); MONOCYTES 11.1 %; MONOCYTES ABSOLUTE 1.01 10/3/uL (0.21-1.20); NEUTROPHILS 62.7 %; NEUTROPHILS ABSOLUTE 5.69 10/3/uL (2.02-8.40); PLATELET COUNT 399 10/3/uL (150-400); RBC DISTRIBUTION WIDTH 16.1 % (12.0-16.0); RED CELL COUNT 3.37 10/6/uL (4.0-5.6); WHITE BLOOD CELLS 9.1 10/3/uL (4.5-10.5)
[2016-08-27 05:46] LABS: MANUAL DIFF NO %
[2016-08-27 05:51] LABS: BUN (BLOOD UREA NITROGEN) 3 MG/DL (6-23); CALCIUM, SERUM 8.5 MG/DL (8.5-10.4); CHLORIDE, SERUM 110 MMOL/L (96-112); CO2 (CARBON DIOXIDE) 21 MMOL/L (24-34); GFR AFRICAN AMERICAN 110 ML/MIN (>=60); GFR NON AFRICAN AMERICAN 95 ML/MIN (>=60); GLUCOSE, SERUM 72 MG/DL (60-99); POTASSIUM, SERUM 4.4 MMOL/L (3.5-5.3); SODIUM, SERUM 141 MMOL/L (135-148)
[2016-08-27 09:33] LABS: INTERNATIONAL NORMAL RATI 1.2 UNITS (-); PARTIAL THROMBO TIME 37.1 SEC (22.5-37.2); PROTIME (NOT ORD) 15.2 SEC (12.0-14.5)
[2016-08-28 06:31] LABS: BASOPHILS 0.3 %; BASOPHILS ABSOLUTE 0.02 10/3/uL (0.0-0.16); EOSINOPHILS 3.4 %; EOSINOPHILS ABSOLUTE 0.24 10/3/uL (0.0-0.53); HEMATOCRIT 28.9 % (36.0-48.0); HEMOGLOBIN 9.1 g/dL (12.0-16.0); IMMATURE GRANULOCYTES 0.4 %; IMMATURE GRANULOCYTES ABSOLUTE 0.03 10/3/uL (0.0-0.11); LYMPHOCYTES 27.3 %; LYMPHOCYTES ABSOLUTE 1.93 10/3/uL (0.67-4.30); MEAN CORPUS HGB CONC 31.5 g/dL (32.0-36.0); MEAN CORPUSCULAR HEMOGLOB 28.2 pg (26.0-34.0); MEAN CORPUSCULAR VOLUME 89.5 fL (80-100); MEAN PLATELET VOLUME 8.7 fL (9.2-13.0); MONOCYTES 11.3 %; NEUTROPHILS 57.3 %; NEUTROPHILS ABSOLUTE 4.05 10/3/uL (2.02-8.40); PLATELET COUNT 378 10/3/uL (150-400); RED CELL COUNT 3.23 10/6/uL (4.0-5.6); WHITE BLOOD CELLS 7.1 10/3/uL (4.5-10.5)
[2016-08-28 06:33] LABS: MANUAL DIFF NO %
[2016-08-28 06:36] LABS: BUN (BLOOD UREA NITROGEN) 3 MG/DL (6-23); CALCIUM, SERUM 8.4 MG/DL (8.5-10.4); CHLORIDE, SERUM 110 MMOL/L (96-112); CO2 (CARBON DIOXIDE) 21 MMOL/L (24-34); CREATININE 0.43 MG/DL (0.55-1.02); GFR AFRICAN AMERICAN 115 ML/MIN (>=60); GFR NON AFRICAN AMERICAN 99 ML/MIN (>=60); GLUCOSE, SERUM 76 MG/DL (60-99); POTASSIUM, SERUM 3.9 MMOL/L (3.5-5.3); SODIUM, SERUM 139 MMOL/L (135-148)
[2016-08-28 17:38] LABS: AMYLASE BODY FLUID 12198 U/L
[2016-08-30 06:29] LABS: BD FL SOURCE (NOT ORD) JP DRAIN
[2016-08-30 06:55] LABS: BASOPHILS 0.2 %; BASOPHILS ABSOLUTE 0.02 10/3/uL (0.0-0.16); EOSINOPHILS 1.1 %; EOSINOPHILS ABSOLUTE 0.11 10/3/uL (0.0-0.53); HEMOGLOBIN 9.5 g/dL (12.0-16.0); IMMATURE GRANULOCYTES 0.4 %; IMMATURE GRANULOCYTES ABSOLUTE 0.04 10/3/uL (0.0-0.11); LYMPHOCYTES 16.9 %; LYMPHOCYTES ABSOLUTE 1.76 10/3/uL (0.67-4.30); MANUAL DIFF NO %; MEAN CORPUS HGB CONC 32.8 g/dL (32.0-36.0); MEAN CORPUSCULAR VOLUME 88.4 fL (80-100); MEAN PLATELET VOLUME 9.2 fL (9.2-13.0); MONOCYTES 9.9 %; MONOCYTES ABSOLUTE 1.03 10/3/uL (0.21-1.20); NEUTROPHILS 71.5 %; NEUTROPHILS ABSOLUTE 7.43 10/3/uL (2.02-8.40); PLATELET COUNT 350 10/3/uL (150-400); RBC DISTRIBUTION WIDTH 15.8 % (12.0-16.0); RED CELL COUNT 3.28 10/6/uL (4.0-5.6); WHITE BLOOD CELLS 10.4 10/3/uL (4.5-10.5)
[2016-08-30 07:11] LABS: BUN (BLOOD UREA NITROGEN) 2 MG/DL (6-23); CALCIUM, SERUM 9.3 MG/DL (8.5-10.4); CHLORIDE, SERUM 107 MMOL/L (96-112); CO2 (CARBON DIOXIDE) 23 MMOL/L (24-34); CREATININE 0.42 MG/DL (0.55-1.02); GFR AFRICAN AMERICAN 116 ML/MIN (>=60); GFR NON AFRICAN AMERICAN 100 ML/MIN (>=60); GLUCOSE, SERUM 64 MG/DL (60-99); SODIUM, SERUM 139 MMOL/L (135-148)
[2016-08-30 07:34] LABS: CA-19-9 39.4 U/ML (< 37.0)
[2016-08-31 06:42] LABS: BASOPHILS 0.4 %; BASOPHILS ABSOLUTE 0.02 10/3/uL (0.0-0.16); EOSINOPHILS 1.1 %; EOSINOPHILS ABSOLUTE 0.06 10/3/uL (0.0-0.53); HEMOGLOBIN 9.2 g/dL (12.0-16.0); IMMATURE GRANULOCYTES 0.2 %; IMMATURE GRANULOCYTES ABSOLUTE 0.01 10/3/uL (0.0-0.11); LYMPHOCYTES 30.7 %; MEAN CORPUS HGB CONC 31.7 g/dL (32.0-36.0); MEAN CORPUSCULAR HEMOGLOB 27.9 pg (26.0-34.0); MEAN CORPUSCULAR VOLUME 87.9 fL (80-100); MEAN PLATELET VOLUME 8.6 fL (9.2-13.0); MONOCYTES 13.6 %; MONOCYTES ABSOLUTE 0.71 10/3/uL (0.21-1.20); NEUTROPHILS ABSOLUTE 2.82 10/3/uL (2.02-8.40); PLATELET COUNT 374 10/3/uL (150-400); RBC DISTRIBUTION WIDTH 15.9 % (12.0-16.0)
[2016-08-31 06:43] LABS: WHITE BLOOD CELLS 5.2 10/3/uL (4.5-10.5)
[2016-08-31 06:44] LABS: MANUAL DIFF NO %
[2016-08-31 06:50] LABS: INTERNATIONAL NORMAL RATI 1.3 UNITS (-); PROTIME (NOT ORD) 16.2 SEC (12.0-14.5)
[2016-08-31 06:57] LABS: ALBUMIN 1.7 G/DL (3.5-5.0); BUN (BLOOD UREA NITROGEN) 2 MG/DL (6-23); CALCIUM, SERUM 9.1 MG/DL (8.5-10.4); CHLORIDE, SERUM 107 MMOL/L (96-112); CO2 (CARBON DIOXIDE) 25 MMOL/L (24-34); CREATININE 0.43 MG/DL (0.55-1.02); DIRECT BILIRUBIN 0.2 MG/DL (0.0-0.4); GFR AFRICAN AMERICAN 115 ML/MIN (>=60); GFR NON AFRICAN AMERICAN 99 ML/MIN (>=60); GLUCOSE, SERUM 60 MG/DL (60-99); INDIRECT BILIRUBIN(NOT ORDER) 0.2 MG/DL (0.1-0.9); POTASSIUM, SERUM 3.5 MMOL/L (3.5-5.3); SGOT(AST) 29 U/L (5-40); SGPT(ALT) 12 U/L (5-65); SODIUM, SERUM 139 MMOL/L (135-148); TOTAL BILIRUBIN 0.4 MG/DL (0-1.2); TOTAL PROTEIN 4.7 G/DL (6.0-8.5)
[2016-08-31 06:58] LABS: ALKALINE PHOSPHATASE 227 U/L (45-117)
[2016-09-01 07:22] LABS: BASOPHILS 0.5 %; BASOPHILS ABSOLUTE 0.03 10/3/uL (0.0-0.16); EOSINOPHILS 1.8 %; HEMATOCRIT 28.3 % (36.0-48.0); HEMOGLOBIN 9.1 g/dL (12.0-16.0); IMMATURE GRANULOCYTES 0.2 %; IMMATURE GRANULOCYTES ABSOLUTE 0.01 10/3/uL (0.0-0.11); LYMPHOCYTES 31.6 %; LYMPHOCYTES ABSOLUTE 1.77 10/3/uL (0.67-4.30); MEAN CORPUS HGB CONC 32.2 g/dL (32.0-36.0); MEAN CORPUSCULAR HEMOGLOB 27.9 pg (26.0-34.0); MEAN CORPUSCULAR VOLUME 86.8 fL (80-100); MEAN PLATELET VOLUME 8.8 fL (9.2-13.0); MONOCYTES 12.3 %; MONOCYTES ABSOLUTE 0.69 10/3/uL (0.21-1.20); NEUTROPHILS 53.6 %; PLATELET COUNT 396 10/3/uL (150-400); RED CELL COUNT 3.26 10/6/uL (4.0-5.6); WHITE BLOOD CELLS 5.6 10/3/uL (4.5-10.5)
[2016-09-01 07:23] LABS: MANUAL DIFF NO %
[2016-09-03 08:04] LABS: BASOPHILS 0.7 %; BASOPHILS ABSOLUTE 0.03 10/3/uL (0.0-0.16); EOSINOPHILS 2.4 %; EOSINOPHILS ABSOLUTE 0.11 10/3/uL (0.0-0.53); HEMATOCRIT 29.2 % (36.0-48.0); HEMOGLOBIN 9.6 g/dL (12.0-16.0); IMMATURE GRANULOCYTES 0.4 %; IMMATURE GRANULOCYTES ABSOLUTE 0.02 10/3/uL (0.0-0.11); LYMPHOCYTES 34.3 %; LYMPHOCYTES ABSOLUTE 1.58 10/3/uL (0.67-4.30); MEAN CORPUS HGB CONC 32.9 g/dL (32.0-36.0); MEAN CORPUSCULAR HEMOGLOB 28.7 pg (26.0-34.0); MEAN CORPUSCULAR VOLUME 87.4 fL (80-100); MEAN PLATELET VOLUME 9.4 fL (9.2-13.0); MONOCYTES 16.3 %; MONOCYTES ABSOLUTE 0.75 10/3/uL (0.21-1.20); NEUTROPHILS 45.9 %; NEUTROPHILS ABSOLUTE 2.12 10/3/uL (2.02-8.40); PLATELET COUNT 355 10/3/uL (150-400); RBC DISTRIBUTION WIDTH 16.4 % (12.0-16.0); RED CELL COUNT 3.34 10/6/uL (4.0-5.6); WHITE BLOOD CELLS 4.6 10/3/uL (4.5-10.5)
[2016-09-03 08:05] LABS: MANUAL DIFF NO %
[2016-09-03 08:14] LABS: BUN (BLOOD UREA NITROGEN) 2 MG/DL (6-23); CALCIUM, SERUM 8.6 MG/DL (8.5-10.4); CHLORIDE, SERUM 108 MMOL/L (96-112); CO2 (CARBON DIOXIDE) 25 MMOL/L (24-34); CREATININE 0.46 MG/DL (0.55-1.02); GFR AFRICAN AMERICAN 113 ML/MIN (>=60); GFR NON AFRICAN AMERICAN 97 ML/MIN (>=60); GLUCOSE, SERUM 60 MG/DL (60-99); POTASSIUM, SERUM 3.4 MMOL/L (3.5-5.3); SODIUM, SERUM 141 MMOL/L (135-148)
[2016-09-03 08:21] LABS: INTERNATIONAL NORMAL RATI 1.2 UNITS (-); PARTIAL THROMBO TIME 39.4 SEC (22.5-37.2); PROTIME (NOT ORD) 15.5 SEC (12.0-14.5)
[2016-09-05 07:32] LABS: AMYLASE BODY FLUID 166 U/L
[2016-09-05 07:56] LABS: BD FL SOURCE (NOT ORD) JP DRAIN #3
[2016-09-07 06:13] LABS: BASOPHILS ABSOLUTE 0.05 10/3/uL (0.0-0.16); EOSINOPHILS 2.2 %; EOSINOPHILS ABSOLUTE 0.11 10/3/uL (0.0-0.53); HEMATOCRIT 30.4 % (36.0-48.0); HEMOGLOBIN 9.9 g/dL (12.0-16.0); IMMATURE GRANULOCYTES 0.2 %; IMMATURE GRANULOCYTES ABSOLUTE 0.01 10/3/uL (0.0-0.11); LYMPHOCYTES 36.4 %; LYMPHOCYTES ABSOLUTE 1.86 10/3/uL (0.67-4.30); MEAN CORPUS HGB CONC 32.6 g/dL (32.0-36.0); MEAN CORPUSCULAR HEMOGLOB 28.1 pg (26.0-34.0); MEAN CORPUSCULAR VOLUME 86.4 fL (80-100); MEAN PLATELET VOLUME 9.4 fL (9.2-13.0); MONOCYTES 19.8 %; MONOCYTES ABSOLUTE 1.01 10/3/uL (0.21-1.20); NEUTROPHILS 40.4 %; NEUTROPHILS ABSOLUTE 2.07 10/3/uL (2.02-8.40); PLATELET COUNT 339 10/3/uL (150-400); RBC DISTRIBUTION WIDTH 17.1 % (12.0-16.0); RED CELL COUNT 3.52 10/6/uL (4.0-5.6); WHITE BLOOD CELLS 5.1 10/3/uL (4.5-10.5)
[2016-09-07 06:14] LABS: MANUAL DIFF NO %
[2016-09-07 06:24] LABS: BUN (BLOOD UREA NITROGEN) 3 MG/DL (6-23); CHLORIDE, SERUM 108 MMOL/L (96-112); CO2 (CARBON DIOXIDE) 27 MMOL/L (24-34); CREATININE 0.42 MG/DL (0.55-1.02); GFR AFRICAN AMERICAN 116 ML/MIN (>=60); GFR NON AFRICAN AMERICAN 100 ML/MIN (>=60); GLUCOSE, SERUM 61 MG/DL (60-99); POTASSIUM, SERUM 3.6 MMOL/L (3.5-5.3); SODIUM, SERUM 142 MMOL/L (135-148)
[2016-09-08 06:22] LABS: BASOPHILS 0.4 %; BASOPHILS ABSOLUTE 0.02 10/3/uL (0.0-0.16); EOSINOPHILS 1.6 %; EOSINOPHILS ABSOLUTE 0.08 10/3/uL (0.0-0.53); HEMATOCRIT 32.8 % (36.0-48.0); HEMOGLOBIN 10.4 g/dL (12.0-16.0); IMMATURE GRANULOCYTES 0.2 %; IMMATURE GRANULOCYTES ABSOLUTE 0.01 10/3/uL (0.0-0.11); LYMPHOCYTES 40.6 %; LYMPHOCYTES ABSOLUTE 1.99 10/3/uL (0.67-4.30); MANUAL DIFF NO %; MEAN CORPUS HGB CONC 31.7 g/dL (32.0-36.0); MEAN CORPUSCULAR HEMOGLOB 27.8 pg (26.0-34.0); MEAN CORPUSCULAR VOLUME 87.7 fL (80-100); MEAN PLATELET VOLUME 9.7 fL (9.2-13.0); MONOCYTES 12.7 %; MONOCYTES ABSOLUTE 0.62 10/3/uL (0.21-1.20); NEUTROPHILS 44.5 %; NEUTROPHILS ABSOLUTE 2.18 10/3/uL (2.02-8.40); PLATELET COUNT 361 10/3/uL (150-400); RBC DISTRIBUTION WIDTH 17.2 % (12.0-16.0); RED CELL COUNT 3.74 10/6/uL (4.0-5.6); WHITE BLOOD CELLS 4.9 10/3/uL (4.5-10.5)
[2016-09-08 06:23] LABS: INTERNATIONAL NORMAL RATI 1.2 UNITS (-); PROTIME (NOT ORD) 14.6 SEC (12.0-14.5)
[2016-09-08 06:29] LABS: ALBUMIN 1.9 G/DL (3.5-5.0); ALKALINE PHOSPHATASE 126 U/L (45-117); BUN (BLOOD UREA NITROGEN) 3 MG/DL (6-23); CALCIUM, SERUM 9.5 MG/DL (8.5-10.4); CHLORIDE, SERUM 105 MMOL/L (96-112); CO2 (CARBON DIOXIDE) 28 MMOL/L (24-34); CREATININE 0.49 MG/DL (0.55-1.02); DIRECT BILIRUBIN 0.1 MG/DL (0.0-0.4); GFR AFRICAN AMERICAN 110 ML/MIN (>=60); GFR NON AFRICAN AMERICAN 95 ML/MIN (>=60); GLUCOSE, SERUM 159 MG/DL (60-99); INDIRECT BILIRUBIN(NOT ORDER) 0.2 MG/DL (0.1-0.9); POTASSIUM, SERUM 3.4 MMOL/L (3.5-5.3); SGOT(AST) 14 U/L (5-40); SGPT(ALT) 6 U/L (5-65); SODIUM, SERUM 139 MMOL/L (135-148); TOTAL BILIRUBIN 0.3 MG/DL (0-1.2); TOTAL PROTEIN 4.8 G/DL (6.0-8.5)
[2016-09-09 07:14] LABS: BASOPHILS 0 %; EOSINOPHILS 0 %; HEMOGLOBIN 10.2 g/dL (12.0-16.0); IMMATURE GRANULOCYTES 0.2 %; IMMATURE GRANULOCYTES ABSOLUTE 0.01 10/3/uL (0.0-0.11); LYMPHOCYTES 22.7 %; LYMPHOCYTES ABSOLUTE 1.47 10/3/uL (0.67-4.30); MEAN CORPUS HGB CONC 31.9 g/dL (32.0-36.0); MEAN CORPUSCULAR HEMOGLOB 27.5 pg (26.0-34.0); MEAN CORPUSCULAR VOLUME 86.3 fL (80-100); MEAN PLATELET VOLUME 9.6 fL (9.2-13.0); MONOCYTES 12.9 %; MONOCYTES ABSOLUTE 0.84 10/3/uL (0.21-1.20); NEUTROPHILS 64.2 %; NEUTROPHILS ABSOLUTE 4.17 10/3/uL (2.02-8.40); PLATELET COUNT 297 10/3/uL (150-400); RBC DISTRIBUTION WIDTH 17.5 % (12.0-16.0); RED CELL COUNT 3.71 10/6/uL (4.0-5.6); WHITE BLOOD CELLS 6.5 10/3/uL (4.5-10.5)
[2016-09-09 07:16] LABS: MANUAL DIFF NO %
[2016-09-09 07:25] LABS: INTERNATIONAL NORMAL RATI 1.1 UNITS (-); PARTIAL THROMBO TIME 25.9 SEC (22.5-37.2); PROTIME (NOT ORD) 14.5 SEC (12.0-14.5)
[2016-09-09 07:29] LABS: BUN (BLOOD UREA NITROGEN) 4 MG/DL (6-23); CALCIUM, SERUM 10.1 MG/DL (8.5-10.4); CHLORIDE, SERUM 105 MMOL/L (96-112); CO2 (CARBON DIOXIDE) 26 MMOL/L (24-34); GLUCOSE, SERUM 90 MG/DL (60-99); POTASSIUM, SERUM 4.6 MMOL/L (3.5-5.3); SODIUM, SERUM 138 MMOL/L (135-148)
[2016-09-09 07:30] LABS: CREATININE 0.56 MG/DL (0.55-1.02); GFR AFRICAN AMERICAN 106 ML/MIN (>=60); GFR NON AFRICAN AMERICAN 91 ML/MIN (>=60)
[2016-09-09 07:37] LABS: ANISOCYTOSIS 1+ (5-10/OIF) (0-5/OIF); PLATELET ESTIMATE ADQ (ADEQUATE)
[2016-09-10] MEDS ORDERED: NORCO1 TA2 PO (09:21)
[2016-09-30] MEDS ORDERED: BAC PO (15:44)
[2016-10-14] MEDS ORDERED: L20 PO (10:39)
[2016-10-14] MEDS ORDERED: LEVOTHYROXIN125 MCG PO (10:39)
[2016-10-14] MEDS ORDERED: CRESTOR20 MG PO (10:39)
[2016-10-14] MEDS ORDERED: ASAB PO (10:39)
[2016-10-14] MEDS ORDERED: COREG12 PO (10:39)
[2016-10-14] MEDS ORDERED: KLOR-CON M2020 MEQ PO (10:40)
[2016-10-14] MEDS ORDERED: P1 PO (10:40)
[2016-10-14] MEDS ORDERED: MEG40 PO (10:40)
[2016-10-14] MEDS ORDERED: ALIGN4 MG PO (10:41)
[2016-10-14] MEDS ORDERED: PROVHFA INH (10:41)
== END 2016-09-10 12:22 | disposition home health service (06) | DRG 863 ==
LOC: 5SO 19:22
PROVIDERS: Internal Medicine Gastroenterology; Nurse Practitioner Family; Radiology Vascular & Interventional Radiology; Surgery
PROC: 0W9F3ZZ Drainage of Abdominal Wall, Percutaneous Approach (ICD-10-PCS; 2016-08-25)
PROC: 0W9G30Z Drainage of Peritoneal Cavity with Drainage Device, Percutaneous Approach (ICD-10-PCS; 2016-08-27)
PROC: 0W9F3ZZ Drainage of Abdominal Wall, Percutaneous Approach (ICD-10-PCS; 2016-08-30)
PROC: 0DJ08ZZ Inspection of Upper Intestinal Tract, Via Natural or Artificial Opening Endoscopic (ICD-10-PCS; principal; 2016-08-31 07:30)
DX: K68.11 Postprocedural retroperitoneal abscess (principal); M31.6 Other giant cell arteritis; E11.9 Type 2 diabetes mellitus without complications; I25.10 Atherosclerotic heart disease of native coronary artery without angina pectoris; I25.2 Old myocardial infarction; Z79.52 Long term (current) use of systemic steroids; K21.9 Gastro-esophageal reflux disease without esophagitis; I10 Essential (primary) hypertension; K29.80 Duodenitis without bleeding; Z79.899 Other long term (current) drug therapy; Z79.82 Long term (current) use of aspirin
CPT/HCPCS: 36415; 49083; 49406; 49418; 49423; 49424; 74176; 74246; 74330; 75984; 76080; 78226; 80048; 80053; 80076; 82150; 82962; 83735; 84132; 84436; 84443; 85025; 85610; 85730; 86301; 87070; 87075; 87077; 87186; 87205; 93005; 94640; 99152; 99153; A9270-GY; A9537; C1729; C1769; C9113; J1170; J2250; J2370; J2405; J2543; J2550; J2710; J2997; J3010; J3475; Q9967